=== PATIENT | male | born 1980 | race Caucasian/White ===

== ENCOUNTER → 2025-04-10 | Outpatient (CLI) | payer SELFPAY ==
--- NOTE | 2025-04-10 12:38 | RAD_ITS ---
PROCEDURE: L/S SPINE COMP/W BENDING VIEWS 04/10/2025 REASON FOR EXAM: SCIATICA TECHNIQUE: Procedure Code: [id number] Modality: DX Procedure: 7 view lumbar spine series including lateral flexion and extension views and bilateral oblique views COMPARISON: None provided. RAD/L/S Spine Comp/w Bending Views IMPRESSION: A small radiodensity over the left inferior kidney is seen, most likely represe nting a renal calculus. The bowel-gas pattern is unremarkable. Mild degenerative changes of the lumbar spine are most prominent in the lower l umbar posterior facets. Also, moderate disc narrowing is seen at L5-S1, with mild retrolisthesis present. No evidence of spondylolysis or anterolisthesis. On lateral flexion and extension views, mild dynamic instability is likely pres ent, only at L5-S1. No fracture is seen. Reading Location: [place] [id number]
--- NOTE | 2025-04-10 12:38 | RAD_ITS ---
PROCEDURE: HIP, UNI W/ PELVIS 2-3 VIEWS 04/10/2025 REASON FOR EXAM: SCIATICA TECHNIQUE: Procedure Code: [facility] Modality: DX Procedure: HIP, UNI W/ PELVIS 2-3 VIEWS Laterality: Left COMPARISON: None. FINDINGS: BONES: No acute fracture or focal osseous lesion. 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 JOINTS: No dislocation. Mild narrowing of the hip joint. SOFT TISSUES: The soft tissues are unremarkable. RAD/HIP, UNI W/ Pelvis 2-3 Views IMPRESSION: 1. 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 2. Mild hip joint space narrowing. Reading Location: [id number]
== END | disposition home or self-care (01) ==
PROVIDERS: Referring Provider Chiropractor Orthopedic; Visit Provider Chiropractor Orthopedic
DX: M99.03 Segmental and somatic dysfunction of lumbar region (principal); M54.50 Low back pain, unspecified; M54.32 Sciatica, left side
CPT/HCPCS: 72114; 73502